=== PATIENT | female | born 1965 | race Caucasian/White ===

== ENCOUNTER 2016-12-08 21:50 | Emergency (ER) | payer SELFPAY ==
[~2016-12-08] VITALS: Ht 162.6 cm; Wt 76.5 kg
[2016-12-09 00:15] VITALS: Ht 162.6 cm; Wt 76.5 kg
== END 2016-12-09 04:30 | disposition left against medical advice (07) ==
LOC: FTE 21:50
DX: Z53.21 Procedure and treatment not carried out due to patient leaving prior to being seen by health care provider (principal)